=== PATIENT | female | born 1960 | race Caucasian/White ===

== ENCOUNTER 2023-09-18 21:05 | Emergency (ER) | payer SELFPAY ==
[~2023-09-18] VITALS: Ht 167.6 cm; Wt 58.2 kg
[2023-09-18 21:11] VITALS: TEMP 97.6
[2023-09-18] MEDS ORDERED: NS 500 ML IV ONE (21:30)
[2023-09-18 21:47] LABS: BASO % 0.8 % (0.0-2.0); EOS # 0.1 K/mm3 (0.0-0.7); EOS % 1.9 % (0.0-4.0); GRAN # 2.5 K/mm3 (1.4-6.5); HEMATOCRIT 45.7 % (37.0-47.0); HEMOGLOBIN 15.4 g/dl (12.5-16.0); LYMPH # 2.2 K/mm3 (1.2-3.4); LYMPH % 41.1 % (20.0-51.0); MEAN CELL VOLUME 87 fl (80.0-100.0); MEAN CORPUSCULAR HEMOGLOBIN 29 pg (27-31); MEAN CORPUSCULAR HGB CONC 34 g/dl (33.0-37.0); MEAN PLATELET VOLUME 9.1 fl (7.4-10.4); MONO # 0.5 K/mm3 (0.1-0.6); PLATELET COUNT 176 K/mm3 (130-400); RED BLOOD COUNT 5.25 M/mm3 (4.10-5.30); REDCELL DISTRIBUTION WIDTH-CV 13.5 % (11.5-14.5)
[2023-09-18 22:13] LABS: ALANINE AMINOTRANSFERASE 22 U/L (0-55); ALKALINE PHOSPHATASE 62 U/L (40-150); ANION GAP 9 mmol/L (7-16); AST,SGOT 23 U/L (5-34); BILIRUBIN,TOTAL 0.6 mg/dL (0.2-1.2); BLOOD UREA NITROGEN 13 mg/dL (10-20); CARBON DIOXIDE 27 mmol/L (23-31); CHLORIDE 104 mmol/L (98-107); CREATININE, serum 0.86 mg/dL (0.57-1.11); GLUCOSE 117 mg/dL (70-99); POTASSIUM 4.2 mmol/L (3.5-4.5); SODIUM 140 mmol/L (136-145); TOTAL PROTEIN 7.4 gm/dL (6.2-8.1)
[2023-09-18 22:32] LABS: TSH w REFLEX 8.177 uIU/mL (0.350-4.940)
[2023-09-18 22:34] LABS: TROPONIN-I < 0.010 ng/mL (0.00-0.033)
[2023-09-18 23:42] VITALS: BP 152/83; PULSE 56
== END 2023-09-18 23:52 | disposition home or self-care (01) ==
LOC: COL.ER 21:05
PROVIDERS: Emergency Medicine
DX: R00.2 Palpitations (principal); R94.6 Abnormal results of thyroid function studies; Z82.49 Family history of ischemic heart disease and other diseases of the circulatory system
CPT/HCPCS: J7040

== ENCOUNTER 2024-02-19 06:13 | Emergency (ER) | payer SELFPAY ==
[~2024-02-19] VITALS: Ht 167.6 cm; Wt 59.1 kg
[2024-02-19 06:30] VITALS: TEMP 98.5
[2024-02-19] MEDS ORDERED: Ketorolac 30 MG/ML VIAL IM ONE (06:45)
[2024-02-19] MEDS ORDERED: AMOXICILLIN 8751 TAB PO (06:46)
[2024-02-19 07:17] VITALS: BP 125/79; PULSE 75
== END 2024-02-19 07:18 | disposition home or self-care (01) ==
LOC: COL.ER 06:13
DX: K02.9 Dental caries, unspecified (principal)
CPT/HCPCS: J1885